=== PATIENT | male | born 1960 | race Caucasian/White ===

== ENCOUNTER 2017-04-06 06:57 | Day surgery (SDC) | payer OTHER ==
[~2017-04-06] VITALS: Ht 172.7 cm; Wt 58.1 kg
[~2017-04-06 06:57] MED LIST: ASPIRIN325 MG PO; CLINDAMYCIN HC300 MG PO; FLEXERIL10 MG PO; MULTIVITAMINS1 EAC7 PO; NORCO 5-325 TA1 EACH PO; PRILOSEC10 MG PO
[2017-04-06] MEDS ORDERED: ADVIL200 M1 PO (07:29)
[2017-04-06] MEDS ORDERED: VENTOLIN HFA18 GM INH (07:29)
[2017-04-06] MEDS ORDERED: HYDROCORTISONE (07:30)
--- NOTE | 2017-04-06 08:26 | NUR ---
04/06/17 0826 Vivienne Burns 0846 PATIENT ARRIVES TO PACU SLEEPING, AWAKENS TO REPEATED VERBAL STIMULI, SLOW TO RESPOND THEN BACK TO SLEEP. RESP EVEN AND UNLABORED, NC AT 3 LITERS.
--- NOTE | 2017-04-12 06:10 | OR ---
[facility] [address] [place], [place] [address] Signed DATE OF OPERATION: 04/06/2017 SURGEON: Alton Santos MD PREOPERATIVE DIAGNOSIS: Personal history of colonic polyps in 2012. POSTOPERATIVE DIAGNOSIS: Minimal internal and external hemorrhoids with internal anal skin tags. PROCEDURE: Colonoscopy without biopsy. ESTIMATED BLOOD LOSS: None. INDICATIONS: Mariel is a 57-year-old gentleman asked to see me for followup colonoscopy. He had benign colonic polyps removed in 2012 with the [facility] in [place], [place]. He was told to follow up in 3 years. He presents now year five. He said he has no lower GI complaints. He stopped drinking in December 2016. He says he feels much better. He says his bowel movements are back to normal. No family history of colon cancer or polyps. In the office, I gave Mariel a pamphlet on colonoscopy. We looked at that together along with the risks including, but not limited to gas bloating, crampy abdominal pain, bleeding, perforation, requiring surgery, and missed diagnosis. We also discussed the need for IV conscious sedation. He had expressed understanding and wished to proceed. PROCEDURE NOTE: Mariel was taken into our endoscopy suite and placed in the left lateral decubitus position. He was given divided doses of 7 mg of Versed and 150 mcg of fentanyl. A digital rectal exam was performed. He has some small external hemorrhoids. A little bit induration to the prostate. The adult colonoscope was introduced and advanced under direct visualization of camera without difficulty into the cecum. He is a slight of build and the sigmoid colon is a bit narrow, so I did take a little extra sedation and abdominal compression in order to advance the scope. Once in the cecum, the scope was slowly withdrawn. We found no pathology throughout the entire colon or rectum. Upon retroflexion of the scope, he has some small internal anal skin tags associated with minimal internal anal hemorrhoid tissue. After this, the gas was suctioned out, colonoscope removed. Mariel tolerated the procedure quite well. Electronically Signed By: ALTON SANTOS MD 04/12/17 0610 PATIENT NAME: MARIEL ROCK OPERATIVE REPORT DATE OF : 64 REPORT #: [id number] PHYSICIAN: ALTON SANTOS MD PCP: NO PRIMARY CARE PHYSICIAN REPORT IS CONFIDENTIAL AND NOT TO BE RELEASED WITHOUT AUTHORIZATION [address] [address] Signed RECOMMENDATIONS: Mariel can follow up in my office in 5 years for repeat colonoscopy. Alton Santso MD ALB/KYLE /[id number] cc: MD Joshua Corley MD Copies: ALTON SANTOS MD, TIMOTHY MD ~ Electronically Signed By: ALTON SANTOS MD 04/12/17 0610 PATIENT NAME: MARIEL ROCK OPERATIVE REPORT DATE OF : 64 REPORT #: [id number] PHYSICIAN: ALTON SANTOS MD PCP: NO PRIMARY CARE PHYSICIAN REPORT IS CONFIDENTIAL AND NOT TO BE RELEASED WITHOUT AUTHORIZATION
== END 2017-04-06 08:57 | disposition home or self-care (01) ==
LOC: OPS 06:57 → DS 06:57 → OPS 08:15 → DS 08:15 → OPS 08:57
PROVIDERS: Colon & Rectal Surgery
PROC: 0DJD8ZZ Inspection of Lower Intestinal Tract, Via Natural or Artificial Opening Endoscopic (ICD-10-PCS; principal; 2017-04-06 08:15)
DX: Z12.11 Encounter for screening for malignant neoplasm of colon (principal); K64.4 Residual hemorrhoidal skin tags; K64.8 Other hemorrhoids; J30.9 Allergic rhinitis, unspecified; J44.9 Chronic obstructive pulmonary disease, unspecified; F17.210 Nicotine dependence, cigarettes, uncomplicated; Z86.010 Personal history of colon polyps; Z98.890 Other specified postprocedural states; Z91.040 Latex allergy status
CPT/HCPCS: G0500; J2250; J3010; J7120

== ENCOUNTER 2021-11-24 05:57 | Emergency (ER) | payer OTHER ==
[~2021-11-24] VITALS: Ht 172.7 cm; Wt 62.0 kg
[~2021-11-24 05:57] MED LIST changes: +ADVIL200 M1 PO; +ALLERGY RELIEF10 M2 PO; +ASPIRIN EC325 MG PO; +CENTRUM ADULTS1 EACH PO; +HYDROCORTISONE; +MILK THISTLE87.5 MG PO; +PRILOSEC OTC20 MG PO; +VENTOLIN HFA18 GM INH
[2021-11-24] MEDS ORDERED: BAYER CHEWABLE81 MG PO (06:13)
--- NOTE | 2021-11-24 20:50 | EKG ---
[facility] [address] [facility] [place] [address] Signed Normal sinus rhythm Normal ECG When compared with ECG of 21-NOV-2017 15:35, QT has shortened Confirmed by OSCAR FIGUEROA MD ([id number]) on 11/24/2021 8:50:36 PM Electronically Signed By: OSCAR FIGUEROA MD 11/24/212049 PATIENT NAME: MARIEL ROCK Electrocardiogram DATE OF : 64 PHYSICIAN: OSCAR FIGUEROA MD REPORT #: [id number] REPORT IS CONFIDENTIAL AND NOT TO BE RELEASED WITHOUT AUTHORIZATION
== END 2021-11-24 09:11 | disposition home or self-care (01) ==
LOC: ED 05:57
DX: R07.9 Chest pain, unspecified (principal); J44.9 Chronic obstructive pulmonary disease, unspecified; K21.9 Gastro-esophageal reflux disease without esophagitis; F17.200 Nicotine dependence, unspecified, uncomplicated
CPT/HCPCS: 36415; 71045; 76705; 80053; 83690; 84484; 85025; 85610; 85730; 93005; 93010; 99285-25

== ENCOUNTER 2022-12-24 08:59 | Emergency (ER) | payer OTHER ==
[~2022-12-24] VITALS: Ht 172.7 cm; Wt 58.5 kg
[~2022-12-24 08:59] MED LIST changes: +BAYER CHEWABLE81 MG PO
[2022-12-24] MEDS ORDERED: HYDROCODON-ACE1 EA10 PO (11:50)
[2022-12-24] MEDS ORDERED: AMOX TR-K CLV1 EAC1 PO (11:50)
[2022-12-24] MEDS ORDERED: METHYLPREDNISOLO4 M1 PO (11:50)
[2022-12-24 12:25] VITALS: BP 146/89
== END 2022-12-24 12:26 | disposition home or self-care (01) ==
LOC: ED 08:59
DX: S02.40FA Zygomatic fracture, left side, initial encounter for closed fracture (principal); S02.40DA Maxillary fracture, left side, initial encounter for closed fracture; S02.842A Fracture of lateral orbital wall, left side, initial encounter for closed fracture; S02.32XA Fracture of orbital floor, left side, initial encounter for closed fracture; S04.32XA Injury of trigeminal nerve, left side, initial encounter; J44.9 Chronic obstructive pulmonary disease, unspecified; F17.200 Nicotine dependence, unspecified, uncomplicated; W01.0XXA Fall on same level from slipping, tripping and stumbling without subsequent striking against object, initial encounter; Z91.09 Other allergy status, other than to drugs and biological substances; Z91.040 Latex allergy status; Z79.82 Long term (current) use of aspirin; Z79.899 Other long term (current) drug therapy
CPT/HCPCS: 70450; 70486; 72125

== ENCOUNTER 2023-03-28 05:45 | Day surgery (SDC) | payer OTHER ==
[2023-03-22 16:10] VITALS: BP 143/86
[~2023-03-28] VITALS: Ht 172.7 cm; Wt 60.0 kg
--- NOTE | ~2023-03-28 | OR ---
[facility] [address] [place], [place] [address] Draft DATE OF OPERATION: 03/28/2023 SURGEON: Jerrod Sutton MD PREOPERATIVE DIAGNOSES: 1. Right inguinal hernia (reducible). 2. Large right spermatocele. POSTOPERATIVE DIAGNOSES: 1. Right indirect inguinal hernia with indirect sac and attenuated floor. 2. Large right spermatocele. PROCEDURES: 1. Repair of right inguinal hernia including excision and ligation of indirect sac and implantation of Prolene mesh underlay technique. 2. Excision of right spermatocele (separate scrotal incision). ANESTHESIA: General endotracheal, Viviana Trevon, OIL WELL FISHING TOOL TECHNICIAN and local 20 mL of 0.25% Marcaine with epinephrine. INDICATION: This 63-year-old white man is a patient of Ekaterina Goyal as well as STACI Lopez. He was referred for right inguinal hernia in late January. He had not been bothered by it previously, but it has become more uncomfortable for him. Notably, patient underwent a robotic prostatic resection by a urologist in [place]. The current PSA of 0.14. The operation was in 2020. He does have underlying COPD and continues to smoke 1-1/2 pack of cigarettes a day. He has had an 8 pounds weight loss over time. Clinical exam shows reducible right inguinal hernia. He additionally has a rather large spermatocele with a cystic lesion at the apex of the testicle. He is admitted at this time to undergo repair of inguinal hernia as well as transscrotal excision of the spermatocele. He understands the risk of both operation including but not limited to bleeding, infection, recurrent hernia as well as testicular hazard, bleeding or chronic pain regarding testicular operation. Understanding this, he wished to proceed. FINDINGS: An indirect hernia sac was noted. It was excised and ligated. The floor was attenuated and repair of the floor was undertaken with implantation of Prolene mesh in an underlay technique. PATIENT NAME: MARIEL ROCK OPERATIVE REPORT DATE OF : 64 REPORT #: [id number] PHYSICIAN: JERROD SUTTON MD PCP: NIRMAL HUTCHINS PA-C REPORT IS CONFIDENTIAL AND NOT TO BE RELEASED WITHOUT AUTHORIZATION [facility] [address] [place], [place] [address] Draft Through a separate transscrotal incision, the spermatocele was at the apex of the testicle associated with the epididymis itself and measured approximately 4 cm in size. There was a surrounding hydrocele in relation to the right hemiscrotum separate and distinct from the spermatocele itself. Complete excision of the spermatocele was accomplished with preservation of blood flow to the testicle. So as to avoid postoperative torsion of the testicle it was fixed medially, laterally and inferiorly. PROCEDURE IN DETAIL: The patient was brought to the operating room, given a general endotracheal anesthetic. Preoperative antibiotic Ancef was given. Sequential compression device stockings used and heparin subcutaneously administered. The lower abdomen was clipped and prepared with a chlorhexidine solution and draped sterilely including all of the scrotum. After sterile draping, an incision was made cephalad to the pubic tubercle on the right. Dissection was carried through the subcutaneous tissue. Inferior epigastric vessels (superficial) was cauterized and divided. External oblique was incised along its fibers revealing the underlying cord structures. An iliohypogastric and ilioinguinal nerve were identified. The cord was carefully mobilized from the floor of the inguinal canal with the external oblique retracted laterally protecting the nerve branches. It was encircled with a nonlatex cord. Circumferential dissection of the cord allowed for visualization of an indirect inguinal hernia sac. This was dissected free from the cord with meticulous care. Once isolated, opened and internal inspection undertaken. There appeared to be no sign of incarcerated viscus or sliding component. The origin of the hernia sac was doubly secured with 2-0 silk suture and redundant sac passed for pathology. The floor of the canal was quite attenuated. An Allis clamp was applied to the tendon of the transversus abdominis and using electrocautery, the fascia transversalis was incised allowing for blunt dissection of properitoneal fat. A segment of Prolene mesh was cut to an elliptical configuration and secured in an underlay technique with interrupted 2-0 Prolene sutures. A defect was cut in the graft to accommodate the cord. The tails of the graft were secured laterally around the cord, taking special care to avoid encumbrance of regional nerves or the cord itself. 10 mL of 0.25% Marcaine with epinephrine was injected locally. The cord was replaced into the canal as was an ilioinguinal nerve and the external oblique reapproximated with running 2-0 Vicryl suture. Rajiv layer similarly reapproximated and skin closed with running subcuticular 3-0 Vicryl. Steri-Strips were applied as was a temporary OpSite dressing. Attention was turned towards the scrotum. Palpation of the right hemiscrotum showed the testicle to be actually smaller than the epididymal cyst itself. At the apex of the scrotum a transverse incision was made in the scrotum with careful stretching of the skin to allow for accurate division of the cremasteric muscle fiber. PATIENT NAME: MARIEL ROCK OPERATIVE REPORT DATE OF : 64 REPORT #: [id number] PHYSICIAN: JERROD SUTTON MD PCP: NIRMAL HUTCHINS PA-C REPORT IS CONFIDENTIAL AND NOT TO BE RELEASED WITHOUT AUTHORIZATION [facility] [address] [place], [place] [address] Draft Entry into the scrotal space revealed clear fluid with an associated hydrocele. This did not represent the lesion itself, however. The space was enlarged to allow for delivery of the right testicle and its associated epididymal cyst or spermatocele. This was at the apex of the testicle with the epididymis stretched greatly across it and from testicle itself. With meticulous care, this cyst was dissected free from the testicle as well as the epididymis preserving the blood flow to each. Entry to the cyst did allow for decompression of it and once excised it was passed for permanent pathology. Inspection of the vascular supply to the cord showed it to be intact as was the vas deferens. The epididymis was secured to the testicle with interrupted 3-0 Vicryl suture to avoid actual torsion of the epididymis proper. The testicle was replaced into the scrotal containment and secured inferiorly, laterally and medially with 2-0 Vicryl suture to the dermis of the scrotum so as to avoid postoperative torsion. A small amount of Monico powdered hemostatic agent was applied to the area. The dartos muscle was carefully secured with electrocautery after irrigation was undertaken and closed with interrupted 2-0 Vicryl. Steri-Strips were then applied to the skin as was an OpSite dressing. The initial right groin incision OpSite was removed as were the Steri-Strips and Steri-Strips reapplied and an Acticoat dressing applied. The patient was ultimately extubated and transferred to the recovery room in good condition having suffered no complication. Sponge, needle and counts reported as correct x3. MD DEWEY Mccallum/KYLE /[id number] cc: Ekaterina Goyal PA-C Copies: ~ PATIENT NAME: MARIEL ROCK OPERATIVE REPORT DATE OF : 64 REPORT #: [id number] PHYSICIAN: JERROD SUTTON MD PCP: NIRMAL HUTCHINS PA-C REPORT IS CONFIDENTIAL AND NOT TO BE RELEASED WITHOUT AUTHORIZATION
[~2023-03-28 05:45] MED LIST changes: +AMOX TR-K CLV1 EAC1 PO; +HYDROCODON-ACE1 EA10 PO; +LACTATED RINGER'S 1,000 ML IV SCH; +METHYLPREDNISOLO4 M1 PO; +VIT C-ECHINACE1 EACH PO; +VIT D2-K1 20-1259 ML PO; +VITAMIN E OIL-V52 M1 TOP
[2023-03-28 06:10] VITALS: BP 146/91
[2023-03-28] MEDS ORDERED: CEFAZOLIN SODIUM 2 GM/20 ML SYR IV SCH (07:00)
[2023-03-28] MEDS ORDERED: LIDOCAINE HCL 1% 5 ML SDV INJ ONE (07:00)
[2023-03-28] MEDS ORDERED: HEParin SOD (PORCINE) 5,000 UNIT/0.5 ML SYR SUB-Q SCH (07:00)
[2023-03-28] MEDS ORDERED: IBLOOD GLUCOSE TEST STRIP 1 EA TEST VI PRN ×3 (07:00→19:30)
--- NOTE | 2023-03-28 07:29 | NUR ---
ROUNDS. PT AND FEMALE ASSISTIVE TECHNOLOGY TRAINER EXHIBIT STRONG RELATIONAL RESOURCES. PROVIDED HOSPITALITY; PROVIDED PRAYER. PT AND ASSISTIVE TECHNOLOGY TRAINER EXPRESSED APPRECIATION.
[2023-03-28] MEDS ORDERED: LIDOCAINE HCL 4% 5 ML AMP ONE (08:12)
[2023-03-28] MEDS ORDERED: ROCURONIUM BROMIDE 50 MG/5 ML SYR ONE (08:12)
[2023-03-28] MEDS ORDERED: KETAMINE in NS 50 MG/5 ML SYR ONE (08:12)
[2023-03-28] MEDS ORDERED: MIDAZOLAM HCL 2 MG/2 ML VIAL ONE (08:12)
[2023-03-28] MEDS ORDERED: propofoL 200 MG/20 ML VIAL ONE (08:12)
[2023-03-28] MEDS ORDERED: LIDOCAINE HCL 2% 5 ML SDV ONE (08:12)
[2023-03-28] MEDS ORDERED: LIDOCAINE HCL 1% 30 ML SDV ONE (08:24)
[2023-03-28] MEDS ORDERED: dexmedeTOMIDine HCl 200 MCG/2 ML VIAL ONE (08:24)
[2023-03-28] MEDS ORDERED: ACETAMINOPHEN 1,000 MG/100 ML VIAL ONE (08:27)
[2023-03-28] MEDS ORDERED: DEXAMETHASONE SOD PHOS 4 MG/ML VIAL ONE (08:31)
[2023-03-28] MEDS ORDERED: KETOROLAC TROMETHAMINE 30 MG/ML VIAL ONE (08:31)
[2023-03-28] MEDS ORDERED: ondansetron HCL 4 MG/2 ML VIAL ONE (08:31)
[2023-03-28] MEDS ORDERED: LACTATED RINGER'S 1,000 ML IV ONE (08:39)
[2023-03-28] MEDS ORDERED: ePHEDrine sulfate 50 MG/ML AMP ONE (09:05)
[2023-03-28] MEDS ORDERED: SUGAMMADEX SODIUM 200 MG/2 ML ML ONE (10:02)
[2023-03-28] MEDS ORDERED: fentaNYL citrate 100 MCG/2 ML VIAL IV PRN ×2 (10:30→19:30)
[2023-03-28] MEDS ORDERED: HYDROmorphone HCL 1 MG/ML SYR IV PRN (10:30)
[2023-03-28] MEDS ORDERED: ondansetron HCL 4 MG/2 ML VIAL IV PRN ×2 (10:30→19:30)
[2023-03-28] MEDS ORDERED: NALOXONE HCL 0.4 MG SYR IV PRN ×2 (10:30→19:30)
[2023-03-28] MEDS ORDERED: MIDAZOLAM HCL 2 MG/2 ML VIAL IV PRN (10:30)
--- NOTE | 2023-03-28 10:32 | NUR ---
03/28/23 1032 Sheets,Roxie 1010 PT ARRIVED TO PACU ON 6L VIA MASK, ORAL AIRWAY IN PLACE AND JAW THRUST USED TO MAINTAIN AIRWAY. 1017 PT WAKES TO PAINFUL STIMULI AND ORAL AIRWAY REMOVED. PT COUGHING AND BRACING HIS OWN ABD. HOB INCREASED AND PT STARTS GRABBING AT HIS FACE. O2 MASK REMOVED. 1020 PT DENIES PAIN AND NAUSEA. PLAN OF CARE DISCUSSED. RN SHOWS PT HIS SURGERY SITE. 1031 PT TALKING TO RN AND AWAKE LOOKING AROUND ROOM.
[2023-03-28] MEDS ORDERED: IBUPROFEN600 MG PO ×2 (10:44→19:28)
[2023-03-28] MEDS ORDERED: ACETAMINOPHEN500 MG PO (10:44)
[2023-03-28] MEDS ORDERED: OXYCODON-ACETA1 EAC2 PO (10:44)
[2023-03-28] MEDS ORDERED: ACETAMINOPHEN 500 MG TAB PO PRN (10:45)
[2023-03-28] MEDS ORDERED: IBUPROFEN 600 MG TAB PO PRN (10:45)
[2023-03-28] MEDS ORDERED: LACTATED RINGER'S 1,000 ML IV SCH (10:45)
[2023-03-28] MEDS ORDERED: OXYCODONE/APAP 7.5/325 TAB PO PRN (10:45)
[2023-03-28 10:55] VITALS: BP 123/73
--- NOTE | 2023-03-28 11:51 | NUR ---
LE 1055 PATIENT INTO ROOM 3. VITAL SIGNS COMPLETE. PATIENT ALERT AND ORIENTED. BREATHING EQUAL AND UNLABORED. OXYGEN SATURATIONS ABOVE 90% ON ROOM AIR. PATIENT DENIES PAIN OR BEING NAUSEATED. PATIENT IVF INFUSING. PATIENT SURGICAL SITE CLEAN DRY AND INTACT. THE RIGHT TESTICULAR DRESSING SMALL AMOUNT OF RED DRAINAGE. ICE AT SITE PER LESLEY. SUPPORT STRAP ON. PATIENT DRINKING COFFEE AND WATER. CALL LIGHT WITHIN REACH NO FUTHER NEEDS. NO QUESTIONS AT THIS TIME.
--- NOTE | 2023-03-28 11:57 | NUR ---
LE 1115 PATIENT STATES HE HAS 2/10 PAIN TOLERABLE AT THIS TIME. LE 1130 PATIENT ABLE TO VOID 450 MLS OF CLEAR AND YELLOW URINE. LE 1144 PATIENT GIVEN PRN PAIN MEDICINE SEE EMAR. PATIENT DRESSING STILL CLEAN DRY AND INTACT. RIGHT TESTICULAR DRESSING SMALL AMOUNT OF RED DRAINAGE. PATIENT DENIES BEING NAUSEATED. PATIENT ALERT AND ORIENTED. BREATHING EQUAL AND UNLABORED. OXYGEN SATURATIONS ABOVE 90% ON ROOM AIR. CALL LIGHT WITHIN REACH NO FUTHER NEEDS. NO QUESITONS.
--- NOTE | 2023-03-28 12:28 | NUR ---
LE 1215 PATIENT PAIN HAS IMPROVED. PATIENT HAS MET DISCHARGE CRITERIA. PATIENT GIVEN DISCHARGE INSTRUCTIONS. NO QUESITONS AT THIS TIME. PATIENT IV D/C'D WNL. PATIENT WHEELED OUT OF FACILITY NO FUTHER NEEDS. NO QUESITONS.
== END 2023-03-28 12:14 | disposition home or self-care (01) ==
LOC: DS 05:45
PROVIDERS: ATTEND Surgery
PROC: 0YU50JZ Supplement Right Inguinal Region with Synthetic Substitute, Open Approach (ICD-10-PCS; principal; 2023-03-28 07:30)
PROC: 0VBJ0ZZ Excision of Right Epididymis, Open Approach (ICD-10-PCS; 2023-03-28 07:30)
DX: K40.90 Unilateral inguinal hernia, without obstruction or gangrene, not specified as recurrent (principal); N43.41 Spermatocele of epididymis, single; J44.9 Chronic obstructive pulmonary disease, unspecified; F17.210 Nicotine dependence, cigarettes, uncomplicated; K21.00 Gastro-esophageal reflux disease with esophagitis, without bleeding
CPT/HCPCS: J0131; J0690; J1100; J1644; J1885; J2001; J2250; J2405; J2704; J3490; J7121

== ENCOUNTER 2023-03-28 15:23 | Day surgery (SDC) | payer OTHER ==
[~2023-03-28] VITALS: Ht 172.7 cm; Wt 59.1 kg
[~2023-03-28 15:23] MED LIST changes: +ACETAMINOPHEN500 MG PO; +IBUPROFEN600 MG PO; -LACTATED RINGER'S 1,000 ML IV SCH; +OXYCODON-ACETA1 EAC2 PO
[2023-03-28 15:35] VITALS: BP 154/84
--- NOTE | 2023-03-28 15:40 | NUR ---
1500 PT ARRIVED TO DAY SURGERY VIA WHEELCHAIR. PT RETURNED TO EXCESSIVE DRAINAGE FROM SURGICAL SITE. ROOMED PT IN ROOM 5. EXAMINED PT SURGICAL SITE WHICH WAS SATURATED WITH RED DISCHARGE. PT REPORTS DRINKING WATER AND A BEER AROUND 1300. PT REPORTS EATING NOTHING EXCEPT THE 2 CRACKERS HE ATE IN DAY SURGERY BEFORE DISCHARGE. DR SUTTON NOTIFIED. 1515 DR SUTTON SPOKE WITH PT AND ORDERED IV PLACEMENT AND IV MAINTANCE FLUID. 1515 IV STARTED 1520 IV FLUIDS STARTED. 1525 PT VITALS TAKEN. PT AT A TOLERABLE LEVEL 3/10 PAIN. PT HAS CALL LIGHT WITHIN REACH, AT BEDSIDE. NO FURTHER QUESTIONS AT THIS TIME.
[2023-03-28] MEDS ORDERED: propofoL 200 MG/20 ML VIAL ONE ×2 (17:11→18:18)
[2023-03-28] MEDS ORDERED: dexmedeTOMIDine HCl 200 MCG/2 ML VIAL ONE (17:12)
[2023-03-28] MEDS ORDERED: LIDOCAINE HCL 2% 5 ML SDV ONE (17:12)
[2023-03-28] MEDS ORDERED: SUCCINYLCHOLINE IN 0.9% NACL 200 MG/10 ML SYRINGE ONE (17:12)
[2023-03-28] MEDS ORDERED: SODIUM CHLORIDE 0.9% 20 ML IV ONE (17:14)
[2023-03-28 17:24] VITALS: BP 167/83
--- NOTE | 2023-03-28 17:29 | NUR ---
1728 PT VITALS TAKEN. PT AT A TOLERABLE LEVEL OF PAIN AT 3/10. PT STILL HAS SOME BLEEDING FROM SURGIAL SITE. PT HAS CALL LIGHT WITHIN REACH, PT HAS AT BEDSIDE, PT HAS NO FUTHER NEEDS AT THIS TIME.
[2023-03-28] MEDS ORDERED: LIDOCAINE HCL 4% 5 ML AMP ONE (17:48)
[2023-03-28] MEDS ORDERED: CEFAZOLIN SODIUM 2 GM/20 ML SYR IV ONE (18:00)
[2023-03-28] MEDS ORDERED: LACTATED RINGER'S 1,000 ML IV SCH ×2 (18:00→19:30)
[2023-03-28] MEDS ORDERED: ePHEDrine sulfate 50 MG/ML AMP ONE (18:24)
--- NOTE | 2023-03-28 19:17 | NUR ---
03/28/231916 Kandice Chisholm 1907: PT ARRIVES TO PACU VIA STRETCHER FROM OR. AWAKE AND ALERT ON ARRIVAL, MAINTAINS OWN AIRWAY. VSS, RESP EVEN AND UNLABORED ON 6L VIA FACEMASK. O2 SAT STABLE >99%. MAINTAINS APPROPRIATE CONVERSATION. DRESSING C/D/I. DIGNA DRAINS SANGUINOUS FLUID. DENIES PAIN AND NAUSEA 1914: VS REMAINS STABLE. NO CHANGE TO DRESSING. CONTS TO DENY PAIN AND NAUSEA. O2 TURNED OFF AND PT TRIALLED ON RA. MAINTAINS O2 SAT >99% ON RA.
[2023-03-28] MEDS ORDERED: IBUPROFEN600 MG PO (19:28)
[2023-03-28] MEDS ORDERED: OXYCODONE/APAP 7.5/325 TAB PO PRN (19:30)
[2023-03-28] MEDS ORDERED: LIDOCAINE 2% VISCOUS 6 ML SYR TOP ONE (19:30)
[2023-03-28] MEDS ORDERED: ACETAMINOPHEN 500 MG TAB PO PRN (19:30)
[2023-03-28 19:44] VITALS: BP 146/87
--- NOTE | 2023-03-28 19:57 | NUR ---
PT TO FLOOR WITH PACU NURSE VIA STRETCHER. ALERT AND ORIENTED. ABLE TO TRANSFER SELF TO BED. REPORT RECEIVED. VS WNL. PT REPORTS PAIN IS TOLERABLE. DENIES NAUSEA. CLEAR LIQUIDS AND CRACKERS PROVIDED. DRESSING TO RIGHT GROIN AND SCROTUM CDI. BRUISING NOTED. DIGNA IN PLACE WITH SCANT AMOUNT SANGUINEOUS DRAINAGE. AT BEDSIDE. WARM BLANKETS PROVIDED. ORACLE DATABASE DEVELOPER IN ROOM FOR ADMISSION.
--- NOTE | 2023-03-28 20:07 | NUR ---
MD IN ROOM DISCUSSING CASE AND PLAN OF CARE WITH . pt ARRIVES TO ROOM VIA STRETCHER, MOVES SELF TO HOSPITAL BED. PROVIDED WITH PO FLUIDS AND CRACKERS. ORIENTATION TO ROOM PROVIDED. SBA TO SIDE OF BED FOR 450 ML VOID IN URINAL. DISCUSSED RECOMMENDATIONS TO LIMIT ALCOHOL AND SMOKING, NO NSAIDS AT DISCHARGE. NOT TO QUIT ALCOHOL COLD TURKEY WITHOUT MEDICAL ASSISTANCE. pt REPORTS DRINKING DAILY 4-5 DRINKS. pt STATES WORKING WITH [facility] REGARDING SMOKING CESSATION. DONOVAN SIBLEY UPDATED, EDUCATING pt ON DRAIN CARE. CALL LIGHT IN REACH. IN ROOM.
--- NOTE | 2023-03-28 20:20 | NUR ---
PT REPORTS RIGHT GROIN "PRESSURE" 04/22. PRN FOR PAIN ADMIN WITH CRACKERS. EDUCATION PROVIDED ON DRAIN STRIPPING AND CARE. PT/ VERBALIZE UNDERSTANDING. DRAIN CARE SUPPLIES PROVIDED TO TAKE HOME.
[2023-03-28 20:55] VITALS: BP 142/83
--- NOTE | 2023-03-28 21:00 | NUR ---
VSS. pt TOLERATING PO INTAKE, NO NAUSEA REPORTED. pt DRESSED, PERSONAL BELONGINGS RETURNED TO pt. VERBAL AND WRITTEN DISCHARGE INSTRUCTION PROVIDED TO pt AND . IV DC'D WNL. pt ESCORTED TO PRIVATE AUTO VIA WHEELCHAIR.
--- NOTE | 2023-04-05 13:37 | CONS ---
[facility] [address] [place], [place] [address] Signed DATE OF CONSULTATION: 03/28/2023 TIME: 3:20 p.m. PROBLEM: Right groin hematoma status post right inguinal hernia repair and right transscrotal excision of epididymal cyst (spermatocele). HISTORY: This 63-year-old white man underwent right inguinal hernia repair by me earlier this morning, which included high ligation of indirect hernia sac as well as reconstruction of the floor with implantation of Prolene mesh. The operation went without problem. There was scant if any bleeding. He also underwent a transscrotal spermatocele excision. He was monitored and ultimately went home. An ice pack had been placed on the groin area. He was noted to have oozing of blood through his dressing and returned to the hospital where he went to the day surgery area and has had blood transgressing the dressing. He has no particular pain. No shortness of breath or other issue. He did have beer at 1:00 p.m. or so. He has not eaten a full meal since discharge. PHYSICAL EXAMINATION: He is accompanied by his . He is alert and oriented and shows no sign of severe distress. Chest shows normal respiratory excursion. Pulse is regular. Examination the right groin shows swelling at the inguinal area with some fresh blood that easily oozes from the midportion. Steri-Strips are involved in a gelatinous coagulum. The right hemiscrotum wound is healing well. There is no sign of scrotal hematoma. ASSESSMENT: The patient has a wound hematoma related to the right inguinal hernia exploration and repair. Exploration of the wound would be appropriate for irrigation, evacuation of clot and security of hemostasis should there be identifiable source of bleeding. As he has recently eaten, we will plan to do this in a few hours approximately at 6 p.m. The risk of bleeding, infection, and other unforeseen complications was reviewed with him and his . They understand and wished to proceed. Jerrod Sutton MD Electronically Signed By: JERROD SUTTON MD 04/05/23 1337 PATIENT NAME: MARIEL ROCK CONSULTATION DATE OF : 64 REPORT #: [id number] PHYSICIAN: JERROD SUTTON MD PCP: NIRMAL HUTCHINS PA-C REPORT IS CONFIDENTIAL AND NOT TO BE RELEASED WITHOUT AUTHORIZATION [facility] [address] [facility] [place] [address] Signed DEWEY/KYLE /[id number] cc: STACI Alvarez Copies: ~ Electronically Signed By: JERROD SUTTON MD 04/05/23 1337 PATIENT NAME: MARIEL ROCK CONSULTATION DATE OF : 64 REPORT #: [id number] PHYSICIAN: JERROD SUTTON MD PCP: NIRMAL UHTCHINS PA-C REPORT IS CONFIDENTIAL AND NOT TO BE RELEASED WITHOUT AUTHORIZATION
--- NOTE | 2023-04-05 13:37 | OR ---
[facility] [address], [place] [address] Signed DATE OF OPERATION: 03/28/2023 SURGEON: Jerrod Sutton MD PREOPERATIVE DIAGNOSES: 1. Postoperative groin hematoma. 2. Status post right inguinal hernia repair with implantation of mesh and right transscrotal spermatocele excision early in the day. POSTOPERATIVE DIAGNOSIS: Hematoma of the cord extending from the inguinal area to the testicle. PROCEDURES: 1. Exploration of right groin wound and right hemiscrotal wound with evacuation of small hematoma. 2. Irrigation and placement of drain. ANESTHESIA: General endotracheal by Viviana Lester CRNA, and local 10 mL of 0.25% Marcaine with epinephrine. INDICATION: This 63-year-old white man underwent right inguinal hernia repair as well as transscrotal excision of a large spermatocele at the apex of his testicle earlier this morning. The inguinal exploration was very straightforward without any significant bleeding. The transscrotal exploration was similarly hemostatic. The patient went home without problem, but later in the day, he drank a beer at approximately 1:00 p.m. and then thereafter, noticed some swelling in the right groin. He presented back to the day surgery area where he was evaluated and found to have what appeared to be a developing hematoma beneath the inguinal incision. There was ecchymosis in the medial aspect and at the scrotum. The scrotal contents itself did not show a large hematoma nor was there an expanding hematoma in the groin proper. Given the clinical situation, I have recommended exploration of the wounds, evacuation of hematoma as appropriate and control of bleeding if necessary. The patient does take aspirin on a daily basis and is a daily drinker between six and eight beers. FINDINGS: Exploration was initially brought through the inguinal area. There was no sign of soft tissue bleeding or bleeding in the floor, but there was ecchymosis and swelling of the cord itself. This prompted exploration of the transscrotal incision where similar Electronically Signed By: JERROD SUTTON MD 04/05/23 1337 PATIENT NAME: MARIEL ROCK OPERATIVE REPORT DATE OF : 64 REPORT #: [id number] PHYSICIAN: JERROD SUTTON MD PCP: NIRMAL HUTCHINS PA-C REPORT IS CONFIDENTIAL AND NOT TO BE RELEASED WITHOUT AUTHORIZATION [facility] [address] [place], [place] [address] Signed findings were noted. The cord structures were and a small amount of venous clotted blood was extracted superiorly and inferiorly. Electrocautery was used for areas that may have been vulnerable to bleeding. There was no sign of active bleeding in proper. Irrigation was undertaken in both areas with sterile water for firming, no bleeding. The testicle was secured within the hemiscrotum with three-point fixation to avoid postoperative torsion. A drain was placed through a lateral incision extending through the inguinal canal and down into the right hemiscrotum. DESCRIPTION OF PROCEDURE: The patient was brought to the operating room, given a general endotracheal anesthetic. Preoperative antibiotic Ancef was given. Sequential compression device stockings were used. Heparin was not administered. After satisfactory general endotracheal anesthesia, the Steri-Strips of the scrotum and the right groin wound were removed and the area prepared with a Betadine based solution. The inguinal incision was opened first dividing Vicryl suture and the subcutaneous tissue was . There was no sign of hematoma in this area or sign of active bleeding. Extension through Rajiv's layer showed the groin to have a small amount of fluid venous blood, but no active bleeding. The cord itself was congested and had hematoma within the cord structure itself. The floor of the canal was free of clot or active bleeding. Irrigation was undertaken with sterile water. The soft tissues of the cord were with a hemostat and the hematoma type material was milked from the substance of the cord itself. Irrigation was undertaken more fully and the wound was then temporarily packed. Given the findings of cord bleeding rather than soft tissue bleeding of the external oblique, the floor or elsewhere, opening of the right hemiscrotum was deemed advisable. This was undertaken without problem entering the right hemiscrotum and showing some venous blood that was oozing in the region of the dartos muscles that had been joined. The Vicryl sutures that had pexed the testicle to the dermis of the scrotum were divided delivering the testicle without outside the scrotum itself. Again the findings showed cord and hematoma, which was freed bluntly and the cord clot freed as much as possible. Irrigation was undertaken with sterile water. There was no sign of active bleeding. The tissues and membranes that had been divided, excised in spermatocele were carefully inspected and cauterized, though again no point bleeding was noted. The dermis of the hemiscrotum appeared to be reasonably hemostatic. The dartos muscle itself did have oozing of blood to a degree. The hemostasis was assured as much as possible with electrocautery and the testicle were placed in the right hemiscrotum and secured to the dermis with interrupted 2-0 Vicryl sutures superiorly, laterally, rather inferiorly, laterally and medially to avoid postoperative torsion. The epididymis itself was allowed to remain with the testicle. The dartos muscle was closed with running 2-0 Vicryl suture after application of powdered Monico hemostatic agent. Subsequently, the skin was closed with running Electronically Signed By: JERROD SUTTON MD 04/05/23 1337 PATIENT NAME: MARIEL ROCK OPERATIVE REPORT DATE OF : 64 REPORT #: [id number] PHYSICIAN: JERROD SUTTON MD PCP: NIRMAL HUTCHINS PA-C REPORT IS CONFIDENTIAL AND NOT TO BE RELEASED WITHOUT AUTHORIZATION [facility] [address] [place] [id number] Signed subcuticular 3-0 Vicryl. Closure of the right groin wound consisted of application of Monico hemostatic agent as well as closure of Rajiv's layers with interrupted 2-0 Vicryl and skin closed with running subcuticular 3-0 Vicryl. Steri-Strips were applied to both sites as were Acticoat dressings. The patient tolerated the procedure well, was ultimately extubated and transferred to the recovery room in good condition, having suffered no complications. Sponge, needle, and instrument counts reported as correct x3. A drain that had been placed through a lateral incision extending down through the groin and into the right hemiscrotum had been secured to the skin with nylon suture and is attached to bulb suction showing minimal serosanguineous drainage. MD DEWEY Mccallum/KYLE /[id number] cc: Ekaterina Goyal PA-C Copies: ~ Electronically Signed By: JERROD SUTTON MD 04/05/23 1337 PATIENT NAME: MARIEL ROCK OPERATIVE REPORT DATE OF : 64 REPORT #: [id number] PHYSICIAN: JERROD SUTTON MD PCP: NIRMAL HUTCHINS PA-C REPORT IS CONFIDENTIAL AND NOT TO BE RELEASED WITHOUT AUTHORIZATION
== END 2023-03-28 21:00 | disposition home or self-care (01) ==
LOC: DS 15:23 → MS 19:37 → DS 21:00
PROVIDERS: ATTEND Surgery
PROC: 0VC Male Reproductive System, Extirpation (ICD-10-PCS; principal; 2023-03-28 18:23)
DX: N99.841 Postprocedural hematoma of a genitourinary system organ or structure following other procedure (principal); Y83.8 Other surgical procedures as the cause of abnormal reaction of the patient, or of later complication, without mention of misadventure at the time of the procedure
CPT/HCPCS: 00400; J0330; J0690; J2001; J2704; J7121

== ENCOUNTER 2024-02-15 12:20 | Emergency (ER) | payer OTHER ==
[~2024-02-15] VITALS: Ht 172.7 cm; Wt 63.0 kg
[~2024-02-15 12:20] MED LIST changes: +CENTRAVITES 501 EACH PO; -CENTRUM ADULTS1 EACH PO; +PROAIR DIGIHAL90 MCG INH; -VENTOLIN HFA18 GM INH
[2024-02-15 12:39] LABS: BASOPHILS 0.4 % (0-2); EOSINOPHILS 0.9 % (0-6); HEMATOCRIT 43.9 % (35.0-50.0); HEMOGLOBIN 15.1 g/dL (12.0-18.0); LYMPHOCYTES 21.8 % (24-44); MCH 34.1 (27-36); MCHC 34.4 g/dl (30-36); MCV 99.2 fl (81-99); MONOCYTES 10.3 % (0-12); NEUTROPHILS 66.6 % (39-80); PLATELET COUNT 140 K/uL (140-440); RBC 4.42 M/ul (4.3-5.7); RDW 13.2 (10.5-15.0)
[2024-02-15 12:53] LABS: INR 0.9 (0.80-1.30); PROTIME 12.1 Sec (11.2-14.2)
[2024-02-15 12:59] LABS: ALBUMIN 4.4 g/dL (3.4-5.0); ALKALINE PHOSPHATASE 116 U/L (46-116); ALT (SGPT) 55 U/L (14-59); ANION GAP 13.9 (7-21); AST (SGOT) 34 U/L (15-37); BILIRUBIN, TOTAL 0.4 ng/dL (0.2-1.0); BUN/CREATININE RATIO 13.33 (6.0-28.6); CALCIUM 9.2 mg/dL (8.5-10.1); CARBON DIOXIDE 28 mmol/L (21-32); CHLORIDE 103 mmol/L (98-107); GLOMERULAR FILTRATION RATE,EST 97 mL/min (>60); POTASSIUM 3.9 mmol/L (3.5-5.1); PROTEIN, TOTAL 8.4 g/dL (6.4-8.2); UREA NITROGEN 12 mg/dL (7-18)
[2024-02-15 17:01] VITALS: BP 152/94
--- NOTE | 2024-02-16 11:52 | EKG ---
[facility] [address] [facility] [place], [place] [address] Signed Normal sinus rhythm Normal ECG No previous ECGs available Confirmed by Ryan Portillo DO ([id number]) on 02/16/2024 11:52:26 AM Electronically Signed By: RYAN PORTILLO DO 02/16/24 1152 PATIENT NAME: MARIEL ROCK Electrocardiogram DATE OF : 64 PHYSICIAN: RYAN PORTILLO DO REPORT #: [id number] REPORT IS CONFIDENTIAL AND NOT TO BE RELEASED WITHOUT AUTHORIZATION
[2024-04-29] MEDS ORDERED: VARENICLINE TART1 MG PO (12:58)
[2024-04-29] MEDS ORDERED: FISH OIL CONC1000 M1 PO (13:00)
[2024-04-29] MEDS ORDERED: PEPCID40 MG PO (13:03)
[2024-04-29] MEDS ORDERED: GLUCOSAMINE HC500 MG PO (13:04)
[2024-04-29] MEDS ORDERED: IBU600 MG PO (13:05)
== END 2024-02-15 17:03 | disposition home or self-care (01) ==
LOC: ED 12:20
PROVIDERS: Emergency Medicine
DX: R20.0 Anesthesia of skin (principal); R53.1 Weakness; R29.818 Other symptoms and signs involving the nervous system; J44.9 Chronic obstructive pulmonary disease, unspecified; K21.9 Gastro-esophageal reflux disease without esophagitis; F17.200 Nicotine dependence, unspecified, uncomplicated; Z91.040 Latex allergy status; Z91.048 Other nonmedicinal substance allergy status; Z79.899 Other long term (current) drug therapy
CPT/HCPCS: 36415; 70450; 70496; 70498; 71045; 80053; 84484; 85025; 85610; 85730; 93005; 93010; 99285-25; Q9967